=== PATIENT | female | born 1950 | race Caucasian/White ===

== ENCOUNTER 2019-06-20 07:50 | Day surgery (SDC) | payer MEDICARE ==
[~2019-06-20 07:50] MED LIST: PROPOFOL INJ 200 MG/20 ML VIAL IV ONE
[2019-06-20 08:44] LABS: ANION GAP 14 (5-19); BLOOD UREA NITROGEN 7 mg/dL (7-20); CARBON DIOXIDE 24 mmol/L (22-30); CHLORIDE 106 mmol/L (98-107); GLUCOSE 107 mg/dL (75-110); POTASSIUM 3.6 mmol/L (3.6-5.0)
[2019-06-20] MEDS ORDERED: PROPOFOL INJ 200 MG/20 ML VIAL IV ONE (10:55)
--- NOTE | 2019-06-20 11:13 | Operative Report ---
Nonrecallable Operative Report DATE OF SURGERY: 06/20/19 PREOPERATIVE DIAGNOSIS: 1. Screening for malignancy. 2. Personal history of colon cancer POSTOPERATIVE DIAGNOSIS: 1. And 2. Same as above. 3. Multiple colon polyps, removed via hot biopsy forcep in their entirety. OPERATION: 1. Colonoscopy to the cecum. 2. Hot biopsy of multiple colon polyps. SURGEON: WILLY LEUNG ANESTHESIA: LMAC TISSUE REMOVED OR ALTERED: Multiple colon polyps COMPLICATIONS: None apparent ESTIMATED BLOOD LOSS: Minimal PROCEDURE: Procedure in detail: After informed consent was obtained, the patient was brought to the operating room and laid in the left lateral decubitus position. The endoscope was passed up the rectum, sigmoid colon remnant, across the transverse colon, down the ascending colon, and into the cecum. The ileocecal valve and appendiceal orifice were identified. The scope was then withdrawn, circumferentially noting the mucosa. The prep was fair. Multiple washings and suctioning's were required in order to visualize the entirety of the mucosa. This was successful. In the cecum, 4 separate polyps were removed via hot biopsy forcep. They were small, and removed completely. The scope was then withdrawn past the ascending colon, transverse colon. At approximately 50 cm another small diminutive polyp was removed in its entirety via hot biopsy forcep. The scope was pulled down to 30 cm where a colonic anastomosis was identified. There is no evidence of recurrent mass, lesion, or tumor. The scope was pulled down into the rectum. A retroflexion maneuver was performed in the rectum, noting no significant internal hemorrhoids. The scope was straightened, air was suctioned from the rectum, the scope was removed, and the procedure was concluded. All sponge, instrument, and needle counts were correct. Condition: Stable.
--- NOTE | 2019-06-20 11:14 | Discharge Summary ---
Discharge Summary (SDC) - Discharge Final Diagnosis: Multiple colon polyps Date of Surgery: 06/20/19 Discharge Date: 06/20/19 Condition: Stable Treatment or Instructions: Discharge home. Diet as tolerated. Activity: Nonstrenuous. Follow-up with me in 7 to 10 days. Referrals: KRISTEL REED MD [Primary Care Provider] - WILLY LEUNG MD [ACTIVE STAFF] - Discharge Diet: As Tolerated Respiratory Treatments at Home: Deep Breathing/Coughing, Incentive Spirometer Discharge Activity: Balance Activity w/Rest Home Care Assistance: None Needed Report the Following to Your Physician Immediately: Shortness of Breath, Nausea, Vomiting, Fever over 101 Degrees, Unusual Bleeding, IV Site Infection Signs, Urinary Infection Signs
[2019-06-20 11:46] VITALS: BP 1287/64
--- NOTE | 2019-06-20 22:39 | EKG REPORT ---
SEVERITY:- BORDERLINE ECG - SINUS ARRHYTHMIA, RATE 45-71 BORDERLINE R WAVE PROGRESSION, ANTERIOR LEADS MINIMAL ST DEPRESSION, LATERAL LEADS : Confirmed by: Reyes Andrew 20-Jun-2019 22:38:25
== END 2019-06-20 11:45 | disposition home or self-care (01) ==
LOC: END 07:50
PROVIDERS: ATTEND Surgery
DX: D12.0 Benign neoplasm of cecum (principal); D12.6 Benign neoplasm of colon, unspecified; K64.8 Other hemorrhoids; Z85.038 Personal history of other malignant neoplasm of large intestine; Z86.010 Personal history of colon polyps; E11.9 Type 2 diabetes mellitus without complications; E78.00 Pure hypercholesterolemia, unspecified; Z79.84 Long term (current) use of oral hypoglycemic drugs; Z79.899 Other long term (current) drug therapy
CPT/HCPCS: 45385; 36415; 82962; 80048; 88305 ×2; 93005; 93010; 00811; J2704; 811